=== PATIENT | female | born 1980 | race Two or more races ===

== ENCOUNTER 2020-09-29 09:10 | Emergency (ER) | payer MEDICAID, OTHER ==
[~2020-09-29] VITALS: Ht 165.1 cm; Wt 56.7 kg
[2020-09-29 10:30] VITALS: BP 136/94
== END 2020-09-29 12:42 | disposition home or self-care (01) ==
LOC: ER 09:10
DX: T83.9XXA Unspecified complication of genitourinary prosthetic device, implant and graft, initial encounter (principal)
CPT/HCPCS: 72170

== ENCOUNTER 2021-08-13 18:07 | Inpatient (IN) | payer MEDICAID ==
[~2021-08-13] VITALS: Ht 152.4 cm; Wt 63.9 kg
[2021-08-13] MEDS ORDERED: ENOXAPARIN SOD 100 MG/1 ML SYRINGE SC ONE (19:00)
[2021-08-13 20:35] LABS: Basophils # (auto) 0.1 10 ^3/uL (0-0.2); Basophils % (auto) 0.6 % (0.0-2.0); Eosinophils # (auto) 0.2 10 ^3/uL (0-0.8); Eosinophils % (auto) 1.6 % (0.0-7.0); Hematocrit 40.6 % (36.0-46.0); Hemoglobin 13.3 g/dL (12.2-16.2); Lymphocytes # (auto) 2.2 10 ^3/uL (0.4-5.4); Lymphocytes % (auto) 19.9 % (10.0-50.0); Mean Corpuscular Hemoglobin 30.5 pg (28.0-32.0); Mean Corpuscular Hgb Conc. 32.7 g/dL (32.0-36.0); Mean Corpuscular Volume 93.1 fL (80.0-100.0); Monocytes # (auto) 0.7 10 ^3/uL (0-1.3); Monocytes % (auto) 6.4 % (0.0-12.0); Neutrophils # (auto) 8.1 10 ^3/uL (1.6-8.6); Neutrophils % (auto) 71.5 % (37.0-80.0); Nucleated Red Blood Cells % 0.1 %; Red Blood Cells 4.36 10^6/uL (4.0-5.20); Red Cell Distribution Width 12.4 % (11.8-14.3); White Blood Cell 11.3 10^3/uL (4.4-10.8)
[2021-08-13 20:51] LABS: INR 0.94 (0.9-1.15); Partial Thromboplastin Time 27.6 sec (24.6-33.4)
[2021-08-13] MEDS ORDERED: HEPARIN SODIUM (PORCINE) 5000 UNITS/ML 1ML VIAL IV ONE ×2 (21:00)
[2021-08-13] MEDS ORDERED: HEPARIN DRIP/D5W 100UNITS/ML 250 ML IV SCH ×2 (21:00)
[2021-08-13 21:01] LABS: Albumin 4.1 g/dL (3.4-5.0); BUN/Creatinine Ratio 20.2; Calcium 9.8 mg/dL (8.5-10.1); Magnesium 2.2 mg/dL (1.6-2.6); Potassium 4.4 mmol/L (3.5-5.1)
[2021-08-13 21:04] LABS: Bilirubin, Total 0.4 mg/dL (0.2-1.0); Total Protein 8.1 g/dL (6.4-8.2)
[2021-08-13] MEDS ORDERED: hydrALAZINE HCL 20 MG/ML VL IV PRN (22:45)
[2021-08-13] MEDS ORDERED: ONDANSETRON HCL 4 MG/2 ML VIAL IV PRN (22:45)
[2021-08-13] MEDS ORDERED: DOCUSATE SOD 100 MG CAP PO PRN (22:45)
[2021-08-13] MEDS ORDERED: MORPHINE SULFATE INJ 2 MG/ml SYRG IV PRN (22:45)
[2021-08-13] MEDS ORDERED: TEMAZEPAM 15 MG CAP PO PRN (22:45)
[2021-08-13] MEDS ORDERED: HYDROcodone-ACET 5/325MG TAB PO PRN (22:45)
[2021-08-14] MEDS ORDERED: MORPHINE SULFATE INJ 2 MG/ml SYRG IV PRN
[2021-08-14] MEDS ORDERED: NITROGLYCERIN 0.4 MG SL TAB SL PRN
[2021-08-14] MEDS ORDERED: cefTRIAXone 1GM/50ML D5W 50 ML IV ONE (02:15)
[2021-08-14] MEDS: SODIUM CHLOR 0.9% PF (SALINE LOCK) 10ML VIAL/SYR IV SCH ×3 (05:14→21:41)
[2021-08-14 06:08] LABS: Basophils # (auto) 0.1 10 ^3/uL (0-0.2); Basophils % (auto) 0.6 % (0.0-2.0); Eosinophils # (auto) 0.2 10 ^3/uL (0-0.8); Eosinophils % (auto) 1.9 % (0.0-7.0); Hematocrit 35.7 % (36.0-46.0); Hemoglobin 12.1 g/dL (12.2-16.2); Lymphocytes # (auto) 2.7 10 ^3/uL (0.4-5.4); Lymphocytes % (auto) 30.2 % (10.0-50.0); Mean Corpuscular Hemoglobin 31.7 pg (28.0-32.0); Mean Corpuscular Hgb Conc. 33.9 g/dL (32.0-36.0); Mean Corpuscular Volume 93.6 fL (80.0-100.0); Monocytes # (auto) 0.7 10 ^3/uL (0-1.3); Monocytes % (auto) 7.6 % (0.0-12.0); Neutrophils # (auto) 5.3 10 ^3/uL (1.6-8.6); Neutrophils % (auto) 59.7 % (37.0-80.0); Red Blood Cells 3.81 10^6/uL (4.0-5.20); Red Cell Distribution Width 12.3 % (11.8-14.3); White Blood Cell 8.9 10^3/uL (4.4-10.8)
[2021-08-14 06:33] LABS: Albumin 3.1 g/dL (3.4-5.0); Calcium 8.3 mg/dL (8.5-10.1); Potassium 3.8 mmol/L (3.5-5.1)
[2021-08-14 06:38] LABS: BUN/Creatinine Ratio 19.7; Bilirubin, Total 0.5 mg/dL (0.2-1.0); Total Protein 6.7 g/dL (6.4-8.2)
[2021-08-14 09:09] LABS: INR 1.03 (0.9-1.15)
[2021-08-14 09:37] LABS: Partial Thromboplastin Time 97.6 sec (24.6-33.4)
[2021-08-14 10:40] LABS: Urine Bacteria FEW /hpf (None Seen); Urine Blood 2+ /uL (Negative); Urine Mucus FEW (None Seen); Urine Specific Gravity 1.027 (1.001-1.035); Urine WBC 15 /hpf (0 - 5)
[2021-08-14 16:35] LABS: Partial Thromboplastin Time 34.7 sec (24.6-33.4)
[2021-08-14 17:00] VITALS: BP 119/89
[2021-08-14] MEDS ORDERED: HEPARIN SODIUM (PORCINE) 5000 UNITS/ML 1ML VIAL IV ONE (17:00)
[2021-08-14] MEDS ORDERED: HEPARIN DRIP/D5W 100UNITS/ML 250 ML IV SCH (17:00)
[2021-08-14] MEDS ORDERED: [UNRECOGNIZED DRUG - CODE] PO (17:16)
[2021-08-14 22:00] VITALS: BP 116/75
[2021-08-15 05:00] VITALS: BP 109/72
[2021-08-15] MEDS: SODIUM CHLOR 0.9% PF (SALINE LOCK) 10ML VIAL/SYR IV SCH ×3 (05:45→21:46)
[2021-08-15 06:39] LABS: Basophils # (auto) 0.1 10 ^3/uL (0-0.2); Basophils % (auto) 0.5 % (0.0-2.0); Eosinophils # (auto) 0.1 10 ^3/uL (0-0.8); Eosinophils % (auto) 1.4 % (0.0-7.0); Hematocrit 34.4 % (36.0-46.0); Hemoglobin 11.8 g/dL (12.2-16.2); Lymphocytes % (auto) 21.8 % (10.0-50.0); Mean Corpuscular Hemoglobin 31.5 pg (28.0-32.0); Mean Corpuscular Hgb Conc. 34.3 g/dL (32.0-36.0); Monocytes # (auto) 0.8 10 ^3/uL (0-1.3); Monocytes % (auto) 8.4 % (0.0-12.0); Neutrophils # (auto) 6.4 10 ^3/uL (1.6-8.6); Neutrophils % (auto) 67.9 % (37.0-80.0); Red Blood Cells 3.73 10^6/uL (4.0-5.20); Red Cell Distribution Width 12.3 % (11.8-14.3); White Blood Cell 9.4 10^3/uL (4.4-10.8)
[2021-08-15 06:47] LABS: BUN/Creatinine Ratio 15.2; Calcium 8.1 mg/dL (8.5-10.1); Potassium 3.9 mmol/L (3.5-5.1)
[2021-08-15 06:57] LABS: INR 1.03 (0.9-1.15); Partial Thromboplastin Time 66.2 sec (24.6-33.4)
[2021-08-15] MEDS: ACETAMINOPHEN 325 MG TAB PO PRN ×2 (08:51→20:26)
[2021-08-15 09:00] VITALS: BP 111/70
[2021-08-15 13:00] VITALS: BP 106/69
[2021-08-15 13:33] LABS: INR 1.02 (0.9-1.15)
[2021-08-15 17:00] VITALS: BP 107/85
[2021-08-15 19:21] LABS: Partial Thromboplastin Time 59.5 sec (24.6-33.4)
[2021-08-15] MEDS: APIXABAN 5 MG TAB PO SCH (21:46)
[2021-08-15 22:00] VITALS: BP 104/67
[2021-08-16 05:00] VITALS: BP 92/57
[2021-08-16] MEDS: SODIUM CHLOR 0.9% PF (SALINE LOCK) 10ML VIAL/SYR IV SCH ×2 (06:17→15:11)
[2021-08-16 06:29] LABS: Basophils # (auto) 0.1 10 ^3/uL (0-0.2); Basophils % (auto) 0.7 % (0.0-2.0); Eosinophils # (auto) 0.2 10 ^3/uL (0-0.8); Eosinophils % (auto) 2.5 % (0.0-7.0); Hematocrit 35.4 % (36.0-46.0); Lymphocytes # (auto) 1.6 10 ^3/uL (0.4-5.4); Lymphocytes % (auto) 18.1 % (10.0-50.0); Mean Corpuscular Hemoglobin 31.6 pg (28.0-32.0); Mean Corpuscular Hgb Conc. 33.9 g/dL (32.0-36.0); Mean Corpuscular Volume 93.1 fL (80.0-100.0); Monocytes # (auto) 0.9 10 ^3/uL (0-1.3); Monocytes % (auto) 10.4 % (0.0-12.0); Neutrophils % (auto) 68.3 % (37.0-80.0); Red Blood Cells 3.81 10^6/uL (4.0-5.20); Red Cell Distribution Width 12.2 % (11.8-14.3); White Blood Cell 8.9 10^3/uL (4.4-10.8)
[2021-08-16 06:34] LABS: Calcium 8.5 mg/dL (8.5-10.1); Potassium 3.7 mmol/L (3.5-5.1)
[2021-08-16 06:36] LABS: BUN/Creatinine Ratio 13.6
[2021-08-16 09:00] VITALS: BP 105/69
[2021-08-16] MEDS ORDERED: APIX5TAB PO ×2 (09:44→15:23)
[2021-08-16] MEDS ORDERED: PERCOT PO (09:44)
[2021-08-16] MEDS: APIXABAN 5 MG TAB PO SCH (11:14)
[2021-08-16 13:00] VITALS: BP 111/77
[2021-08-16] MEDS ORDERED: HYDR-4902 PO (15:25)
[2021-08-16 16:45] VITALS: BP 117/79
[2021-08-23] MEDS ORDERED: APIXABAN 5 MG TAB PO SCH (10:00)
== END 2021-08-16 17:55 | disposition home health service (06) | DRG 197 ==
LOC: ER 18:07 → TELE 23:54 → TELE-CENTR 08-14 16:17
PROVIDERS: ADMIT Nurse Practitioner Family; ATTEND Internal Medicine Pulmonary Disease
DX: I82.402 Acute embolism and thrombosis of unspecified deep veins of left lower extremity (principal); D72.829 Elevated white blood cell count, unspecified; Z20.822 Contact with and (suspected) exposure to COVID-19; I10 Essential (primary) hypertension
CPT/HCPCS: 36415; 80048; 80053; 81001; 83735; 83880; 84484; 84702; 85025; 85610; 85730; 86850; 86900; 86901; 93005; 93306; 93971; 96365; G0378; J0696

== ENCOUNTER 2022-04-28 15:20 | Emergency (ER) | payer MEDICAID ==
[~2022-04-28] VITALS: Ht 170.2 cm; Wt 60.0 kg
[~2022-04-28 15:20] MED LIST: APIX5TAB PO; HYDR-4902 PO; [UNRECOGNIZED DRUG - CODE] PO
[2022-04-28 16:38] LABS: Basophils # (auto) 0.1 10 ^3/uL (0-0.2); Basophils % (auto) 0.9 % (0.0-2.0); Eosinophils # (auto) 0.1 10 ^3/uL (0-0.8); Eosinophils % (auto) 1.4 % (0.0-7.0); Hematocrit 41.5 % (36.0-46.0); Hemoglobin 13.5 g/dL (12.2-16.2); Lymphocytes # (auto) 2.6 10 ^3/uL (0.4-5.4); Mean Corpuscular Hemoglobin 29.6 pg (28.0-32.0); Mean Corpuscular Hgb Conc. 32.6 g/dL (32.0-36.0); Mean Corpuscular Volume 90.8 fL (80.0-100.0); Monocytes # (auto) 0.7 10 ^3/uL (0-1.3); Monocytes % (auto) 9.1 % (0.0-12.0); Neutrophils # (auto) 3.9 10 ^3/uL (1.6-8.6); Neutrophils % (auto) 52.6 % (37.0-80.0); Nucleated Red Blood Cells % 0.1 %; Red Blood Cells 4.57 10^6/uL (4.0-5.20); Red Cell Distribution Width 12.8 % (11.8-14.3); White Blood Cell 7.3 10^3/uL (4.4-10.8)
[2022-04-28 16:48] LABS: Albumin 3.9 g/dL (3.4-5.0); Calcium 8.9 mg/dL (8.5-10.1); Potassium 4.6 mmol/L (3.5-5.1)
[2022-04-28 16:52] LABS: BUN/Creatinine Ratio 12.7 (10.0-20.0); Bilirubin, Total 0.6 mg/dL (0.2-1.0); Total Protein 7.7 g/dL (6.4-8.2)
[2022-04-28] MEDS ORDERED: MORPHINE SULFATE INJ 2 MG/ml SYRG IV PRN (21:15)
[2022-04-28] MEDS ORDERED: ONDANSETRON HCL 4 MG/2 ML VIAL IV PRN (21:15)
[2022-04-28] MEDS ORDERED: DOCUSATE SOD 100 MG CAP PO PRN (21:15)
[2022-04-28] MEDS ORDERED: APIXABAN 2.5 MG TAB PO ONE (21:15)
[2022-04-28] MEDS ORDERED: SODIUM CHLORIDE 0.9% 1,000 ML IV SCH (21:15)
[2022-04-28] MEDS ORDERED: ACETAMINOPHEN 325 MG TAB PO PRN (21:15)
[2022-04-28] MEDS ORDERED: HYDROcodone-ACET 5/325MG TAB PO PRN (21:15)
[2022-04-28 21:56] VITALS: BP 134/93
[2022-04-29] MEDS ORDERED: ENOXAPARIN SOD 60 MG/0.6 ML SYRINGE SC SCH (10:00)
== END 2022-04-28 21:58 | disposition home or self-care (01) ==
LOC: ER 15:20
DX: I82.402 Acute embolism and thrombosis of unspecified deep veins of left lower extremity (principal); D68.51 Activated protein C resistance
CPT/HCPCS: 36415; 80053; 85025; 85652; 86038; 86141; 93970

== ENCOUNTER 2022-05-01 08:43 | Inpatient (IN) | payer MEDICAID ==
[~2022-05-01] VITALS: Ht 170.2 cm; Wt 62.5 kg
[2022-05-01] MEDS ORDERED: SODIUM CHLORIDE 0.9% 1,000 ML IV ONE (09:30)
[2022-05-01 09:52] LABS: Basophils # (auto) 0 10 ^3/uL (0-0.2); Eosinophils # (auto) 0.1 10 ^3/uL (0-0.8); Eosinophils % (auto) 2.5 % (0.0-7.0); Hemoglobin 13.4 g/dL (12.2-16.2); Lymphocytes # (auto) 1.8 10 ^3/uL (0.4-5.4); Lymphocytes % (auto) 41.4 % (10.0-50.0); Mean Corpuscular Hemoglobin 30.7 pg (28.0-32.0); Mean Corpuscular Hgb Conc. 33.4 g/dL (32.0-36.0); Mean Corpuscular Volume 91.9 fL (80.0-100.0); Monocytes # (auto) 0.5 10 ^3/uL (0-1.3); Monocytes % (auto) 11.8 % (0.0-12.0); Neutrophils # (auto) 1.9 10 ^3/uL (1.6-8.6); Neutrophils % (auto) 43.3 % (37.0-80.0); Nucleated Red Blood Cells % 0.1 %; Red Blood Cells 4.36 10^6/uL (4.0-5.20); Red Cell Distribution Width 12.6 % (11.8-14.3); White Blood Cell 4.4 10^3/uL (4.4-10.8)
[2022-05-01 10:02] LABS: INR 1.02 (0.9-1.15); Partial Thromboplastin Time 30.1 sec (24.6-33.4)
[2022-05-01 10:24] LABS: Potassium 5.1 mmol/L (3.5-5.1)
[2022-05-01 10:31] LABS: Albumin 3.8 g/dL (3.4-5.0); BUN/Creatinine Ratio 13.6 (10.0-20.0); Bilirubin, Total 0.8 mg/dL (0.2-1.0); Calcium 8.9 mg/dL (8.5-10.1); Total Protein 7.5 g/dL (6.4-8.2)
[2022-05-01] MEDS ORDERED: HEPARIN SODIUM (PORCINE) 5000 UNITS/ML 1ML VIAL IV ONE (11:00)
[2022-05-01] MEDS ORDERED: NITROGLYCERIN 0.4 MG SL TAB SL PRN (13:30)
[2022-05-01] MEDS ORDERED: MORPHINE SULFATE INJ 2 MG/ml SYRG IV PRN (13:30)
[2022-05-01] MEDS ORDERED: HEPARIN DRIP/D5W 100UNITS/ML 250 ML IV SCH ×2 (14:15→22:45)
[2022-05-01] MEDS ORDERED: PANTOPRAZOLE 40 MG/10 ML VIAL INJ IV ONE (14:30)
[2022-05-01 14:48] LABS: Cholesterol 180 mg/dL (< 200); HDL Cholesterol 73 mg/dL (40-59); LDL Cholesterol 91 mg/dL (< 100); Triglycerides 52 mg/dL (< 150)
[2022-05-01 18:19] LABS: Urine Bacteria NONE SEEN /hpf (None Seen); Urine Blood Negative /uL (Negative); Urine Specific Gravity 1.046 (1.001-1.035); Urine WBC 2 /hpf (0 - 5)
[2022-05-01 21:30] LABS: INR 1.13 (0.9-1.15)
[2022-05-02 04:52] LABS: Basophils # (auto) 0.1 10 ^3/uL (0-0.2); Basophils % (auto) 1.3 % (0.0-2.0); Eosinophils # (auto) 0.2 10 ^3/uL (0-0.8); Eosinophils % (auto) 3.8 % (0.0-7.0); Hematocrit 35.6 % (36.0-46.0); Lymphocytes # (auto) 2.6 10 ^3/uL (0.4-5.4); Lymphocytes % (auto) 51.7 % (10.0-50.0); Mean Corpuscular Hemoglobin 30.4 pg (28.0-32.0); Mean Corpuscular Hgb Conc. 33.6 g/dL (32.0-36.0); Mean Corpuscular Volume 90.6 fL (80.0-100.0); Monocytes # (auto) 0.4 10 ^3/uL (0-1.3); Monocytes % (auto) 7.6 % (0.0-12.0); Neutrophils # (auto) 1.8 10 ^3/uL (1.6-8.6); Neutrophils % (auto) 35.6 % (37.0-80.0); Nucleated Red Blood Cells % 0.2 %; Red Blood Cells 3.93 10^6/uL (4.0-5.20); White Blood Cell 5.1 10^3/uL (4.4-10.8)
[2022-05-02 05:10] LABS: BUN/Creatinine Ratio 15.3 (10.0-20.0)
[2022-05-02 05:11] LABS: Albumin 3.1 g/dL (3.4-5.0); Calcium 8.1 mg/dL (8.5-10.1)
[2022-05-02 05:13] LABS: Bilirubin, Total 0.8 mg/dL (0.2-1.0); Total Protein 6.4 g/dL (6.4-8.2)
[2022-05-02] MEDS ORDERED: HEPARIN DRIP/D5W 100UNITS/ML 250 ML IV SCH ×2 (05:45→14:30)
[2022-05-02] MEDS: PANTOPRAZOLE 40 MG/10 ML VIAL INJ IV SCH (11:11)
[2022-05-02 14:10] LABS: INR 1.06 (0.9-1.15); Partial Thromboplastin Time 34.8 sec (24.6-33.4)
[2022-05-02] MEDS ORDERED: HEPARIN SODIUM (PORCINE) 5000 UNITS/ML 1ML VIAL IV ONE (14:30)
[2022-05-02] MEDS ORDERED: FOLI1TAB6 PO (14:34)
[2022-05-02 16:57] VITALS: BP 123/78
[2022-05-02] MEDS ORDERED: HEPARIN SODIUM (PORCINE) 5000 UNITS/ML 1ML VIAL ONE (17:00)
[2022-05-02 22:00] VITALS: BP 131/88
[2022-05-03] VITALS (9 sets, daily range): BP systolic 102–125; BP diastolic 71–84
[2022-05-03 00:52] LABS: INR 1.07 (0.9-1.15)
[2022-05-03 00:59] LABS: Partial Thromboplastin Time > 139.0 sec (24.6-33.4)
[2022-05-03] MEDS ORDERED: HEPARIN DRIP/D5W 100UNITS/ML 250 ML IV SCH ×2 (02:45→08:30)
[2022-05-03 07:20] LABS: INR 1.07 (0.9-1.15)
[2022-05-03] MEDS: PANTOPRAZOLE 40 MG/10 ML VIAL INJ IV SCH (11:48)
[2022-05-03 15:33] LABS: INR 1.05 (0.9-1.15); Partial Thromboplastin Time 43.9 sec (24.6-33.4)
[2022-05-03] MEDS ORDERED: LIDOCAINE 2%HCL (LOCAL ANESTH.) INJ 20ML MDV ONE ×2 (15:46→16:06)
[2022-05-03] MEDS ORDERED: MIDAZOLAM HCL 2MG/2ML 2ml VIAL (1mg/ml) ONE ×2 (15:55→16:25)
[2022-05-03] MEDS ORDERED: fentaNYL CITRATE 100 MCG/2 ML VL ONE ×2 (15:56→16:26)
[2022-05-04 01:13] LABS: INR 1.12 (0.9-1.15); Partial Thromboplastin Time 49.5 sec (24.6-33.4)
[2022-05-04 05:00] VITALS: BP 132/81
[2022-05-04 07:15] LABS: Basophils # (auto) 0.1 10 ^3/uL (0-0.2); Basophils % (auto) 0.7 % (0.0-2.0); Eosinophils # (auto) 0.2 10 ^3/uL (0-0.8); Eosinophils % (auto) 2.8 % (0.0-7.0); Hemoglobin 12.8 g/dL (12.2-16.2); Lymphocytes # (auto) 2.1 10 ^3/uL (0.4-5.4); Lymphocytes % (auto) 27.4 % (10.0-50.0); Mean Corpuscular Hemoglobin 30.7 pg (28.0-32.0); Mean Corpuscular Hgb Conc. 34.6 g/dL (32.0-36.0); Mean Corpuscular Volume 88.9 fL (80.0-100.0); Monocytes # (auto) 0.5 10 ^3/uL (0-1.3); Monocytes % (auto) 6.4 % (0.0-12.0); Neutrophils # (auto) 4.7 10 ^3/uL (1.6-8.6); Neutrophils % (auto) 62.7 % (37.0-80.0); Nucleated Red Blood Cells % 0.1 %; Red Blood Cells 4.17 10^6/uL (4.0-5.20); Red Cell Distribution Width 12.5 % (11.8-14.3); White Blood Cell 7.5 10^3/uL (4.4-10.8)
[2022-05-04 07:37] LABS: INR 1.07 (0.9-1.15)
[2022-05-04 07:47] LABS: Calcium 8.6 mg/dL (8.5-10.1); Potassium 4.3 mmol/L (3.5-5.1)
[2022-05-04 07:50] LABS: BUN/Creatinine Ratio 13.4 (10.0-20.0); Partial Thromboplastin Time 77.2 sec (24.6-33.4)
[2022-05-04 09:00] VITALS: BP 114/76
[2022-05-04] MEDS ORDERED: HEPARIN DRIP/D5W 100UNITS/ML 250 ML IV SCH (09:00)
[2022-05-04] MEDS: PANTOPRAZOLE 40 MG/10 ML VIAL INJ IV SCH (09:59)
== END 2022-05-04 12:30 | disposition home or self-care (01) | DRG 197 ==
LOC: ER 08:43 → OVERFLOW 13:35 → CENTRAL 05-02 14:15
PROVIDERS: ADMIT Registered Nurse; ATTEND Internal Medicine
DX: I82.402 Acute embolism and thrombosis of unspecified deep veins of left lower extremity (principal); D68.51 Activated protein C resistance; I87.8 Other specified disorders of veins; Z20.822 Contact with and (suspected) exposure to COVID-19
CPT/HCPCS: 36415; 71275; 76000; 80048; 80053; 80061; 81001; 83036; 84443; 85025; 85610; 85730; 87426; 93306; 93926; 96361; 96374; 99152; C1894; C9113; G0378; J2250